=== PATIENT | female | born 1975 | race Caucasian/White ===

== ENCOUNTER 2020-02-13 18:44 | Observation (INO) | payer MEDICAID ==
[2020-02-13] MEDS ORDERED: Ondansetron 4 MG/2 ML SDV IVPUSH ONE (19:05)
[2020-02-13] MEDS ORDERED: HYDROmorphone 1 MG/ML Syringe IVPUSH STA (19:05)
[2020-02-13] MEDS ORDERED: Sodium Chloride 0.9% 1,000 ML IV SCH (19:15)
[2020-02-13] MEDS ORDERED: HYDROmorphone 1 MG/ML Syringe IVPUSH ONE (19:39)
--- NOTE | 2020-02-13 19:45 | EDM.PDOC ---
ED HPI GENERAL MEDICAL PROBLEM - General Chief Complaint: Abdominal Pain Stated Complaint: ABDOMINAL PAIN Time Seen by Provider: 02/13/20 18:49 Source of Information: Reports: Patient, Other (Friend) History Limitations: Reports: Physical Impairment (Patient crying, hysterical) - History of Present Illness INITIAL COMMENTS - FREE TEXT/NARRATIVE: Ms. Cunningham is a 44-year-old woman with a past medical history significant for obesity, depression, and bipolar affective disorder, who now presents to the ED stating that she has had upper abdominal pain - she passes her hand across her entire upper abdomen - for the past 10 days, but that it got much worse this afternoon, along with nausea, vomiting, and loose bowel movements. The pain occasionally radiates through to her back. The patient is unable to describe the character of the pain. She states that her symptoms improve if she takes a hot shower. She denies any association with food, although she does acknowledge that she ate a greasy breakfast. Further, she states that she was told that she has 2 gallstones, seen on an x-ray in the past. Here in the ED, the patient is found to be hemodynamically stable, afebrile, saturating 95% on room air. She is crying, and hysterical to the point that she is difficult to understand, and obtaining a history from the patient is difficult. Other than her gastrointestinal symptoms, the patient denies recent fever, chills, sore throat, ear pain, nasal or sinus congestion, cough, dyspnea, chest pain, palpitations, constipation, diarrhea, urinary symptoms, recent weight gain or weight loss, recent bloody bowel movements or black bowel movements, recent joint aches, headaches, or rashes. The patient's PCP is Marixa Balderas, however, Dr. Silvestre Friedman, from [place], is ayaka damon while Ms. Balderas is on leave. Her Orthopedic Surgeon is Dr. Jarod Lopez, in [place]. Upper Abdominal Pain Score (Numeric/FACES): 10 - Related Data Allergies Allergy/AdvReac Type Severity Reaction Status Date / Time No Known Allergies Allergy Verified 02/13/20 18:58 Home Meds: Home Meds ARIPiprazole [Abilify] 5 mg PO DAILY 02/13/20 [History] Topiramate [Topamax] 25 mg PO BEDTIME 06/24/20 [History] carvediloL [Carvedilol] 12.5 mg PO BID 02/13/20 [History] lisinopriL [Lisinopril] 10 mg PO DAILY 02/13/20 [History] Past Medical History Cardiovascular History: Reports: Heart Failure (LVEF 34%?), Hypertension Genitourinary History: Reports: Urinary Incontinence Musculoskeletal History: Reports: Other (See Below) (Paget disease of the bone) Neurological History: Reports: Other (See Below) (Left footdrop) Psychiatric History: Reports: Bipolar, Depression Endocrine/Metabolic History: Reports: Obesity/BMI 30+ - Past Surgical History HEENT Surgical History: Reports: Adenoidectomy, Oral Surgery (wisdom teeth extracted), Tonsillectomy (x 2) Cardiovascular Surgical History: Reports: Other (See Below) (Coronary angiogram x 1, 2017 -> clean) GI Surgical History: Reports: Hernia, Abdominal (umbilical) Female Surgical History: Reports: Tubal Ligation Musculoskeletal Surgical History: Reports: Hip Replacement (bilateral), ORIF (left femur) Social & Family History - Family History Family Medical History: Noncontributory - Tobacco Use Smoking Status *Q: Current Every Day Smoker Years of Tobacco use: 29 Packs/Tins Daily: 0.4 - Alcohol Use Alcohol Use History: Yes Alcohol Use Frequency: Socially - Recreational Drug Use Recreational Drug Use: Yes Drug Use in Last 12 Months: Yes Recreational Drug Type: Reports: Marijuana/Hashish (smokes nightly) - Living Situation & Occupation Living situation: Reports: , Other (with friends) 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 ED EXAM, GI/ABD - Physical Exam Exam: See Below Exam Limited By: Physical Impairment (crying, hysterical) General Appearance: Alert, WD/WN, Mild Distress Eyes: Bilateral: Normal Appearance, EOMI Ears: Normal External Exam, Hearing Grossly Normal Nose: Normal Inspection Throat/Mouth: Normal Inspection, Normal Lips, Normal Voice, No Airway Compromise Head: Atraumatic, Normocephalic Neck: Normal Inspection, Full Range of Motion Respiratory/Chest: No Respiratory Distress, Lungs Clear, Normal Breath Sounds, No Accessory Muscle Use Cardiovascular: Normal Peripheral Pulses, Regular Rate, Rhythm, No Gallop, No JVD, No Murmur, No Rub GI/Abdominal Exam: Normal Bowel Sounds, Soft, No Organomegaly, No Distention, No Abnormal Bruit, No Mass, Tender (generalized, but likely more tender in the upper abdomen than the lower abdomen) (Female) Exam: Deferred Rectal (Female) Exam: Deferred Back Exam: Normal Inspection, Full Range of Motion, NT Extremities: Normal Inspection, Normal Range of Motion, No Pedal Edema, Normal Capillary Refill Neurological: Alert, Oriented, Normal Cognition, No Motor/Sensory Deficits Psychiatric: Anxious Skin Exam: Warm, Dry, Intact, Normal Color, No Rash Course - Vital Signs Last Recorded V/S: Last Vital Signs Temp 36.5 C 02/13/20 18:49 Pulse 86 02/13/20 18:49 Resp 20 02/13/20 18:49 BP 97/77 02/13/20 18:49 Pulse Ox 95 02/13/20 18:49 - Orders/Labs/Meds Orders: Active Orders 24 hr Category Date Time Status Sodium Chloride 0.9% [Normal Saline] 1,000 ml Med 02/13/20 19:15 Active IV ASDIRECTED Sodium Chloride 0.9% [Saline Flush] Med 02/13/20 20:14 Active 10 ml FLUSH ONETIME PRN Medication Orders Sodium Chloride (Normal Saline) 1,000 mls @ 150 mls/hr IV ASDIRECTED SANDOR Last Admin: 02/13/20 19:15 Dose: 150 mls/hr Documented by: LIZ Sodium Chloride (Saline Flush) 10 ml FLUSH ONETIME PRN PRN Reason: Keep Vein Open Last Admin: 02/13/20 20:31 Dose: 10 ml Documented by: YASIR Labs: Laboratory Tests 02/13/20 02/13/20 02/13/20 Range/Units 19:12 19:12 19:12 WBC 8.92 (3.98-10.04) K/mm3 RBC 4.24 (3.98-5.22) M/mm3 Hgb 12.7 (11.2-15.7) gm/dl Hct 38.6 (34.1-44.9) % MCV 91.0 (79.4-94.8) fl MCH 30.0 (25.6-32.2) pg MCHC 32.9 (32.2-35.5) g/dl RDW Std Deviation 43.8 (36.4-46.3) fL Plt Count 234 (182-369) K/mm3 MPV 11.0 (9.4-12.3) fl Neutrophils % (Manual) 81 H (40-60) % Band Neutrophils % 0 (0-10) % Lymphocytes % (Manual) 15 L (20-40) % Atypical Lymphs % 0 % Monocytes % (Manual) 3 (2-10) % Eosinophils % (Manual) 0 L (0.7-5.8) % Basophils % (Manual) 1 (0.1-1.2) Platelet Estimate Adequate Plt Morphology Comment Normal RBC Morph Comment Normal Sodium 143 (136-145) mEq/L Potassium 3.6 (3.5-5.1) mEq/L Chloride 106 (98-107) mEq/L Carbon Dioxide 26 (21-32) mEq/L Anion Gap 14.6 (5-15) BUN 15 (7-18) mg/dL Creatinine 0.9 (0.55-1.02) mg/dL Est Cr Clr Drug Dosing 71.03 mL/min Estimated GFR (MDRD) > 60 (>60) mL/min BUN/Creatinine Ratio 16.7 (14-18) Glucose 138 H (74-106) mg/dL Calcium 9.6 (8.5-10.1) mg/dL Total Bilirubin 0.4 (0.2-1.0) mg/dL AST 14 L (15-37) U/L ALT 25 (14-59) U/L Alkaline Phosphatase 71 (46-116) U/L Total Protein 7.2 (6.4-8.2) g/dl Albumin 3.8 (3.4-5.0) g/dl Globulin 3.4 gm/dL Albumin/Globulin Ratio 1.1 (1-2) Lipase 95 (73-393) U/L HCG, Quant 2.0 mIU/mL Meds: Medications Generic Name Dose Route Start Last Admin Trade Name Freq PRN Reason Stop Dose Admin Sodium Chloride 1,000 mls @ 150 mls/hr 02/13/20 19:15 02/13/20 19:15 Normal Saline IV 150 mls/hr ASDIRECTED SANDOR Administration Sodium Chloride 10 ml 02/13/20 20:14 02/13/20 20:31 Saline Flush FLUSH 10 ml ONETIME PRN Administration Keep Vein Open Discontinued Medications Generic Name Dose Route Start Last Admin Trade Name Gerard PRN Reason Stop Dose Admin Hydromorphone HCl 1 mg 02/13/20 19:05 02/13/20 19:15 Dilaudid IVPUSH 02/13/20 19:06 1 mg ONETIME STA Administration Hydromorphone HCl 1 mg 02/13/20 19:39 02/13/20 19:53 Dilaudid IVPUSH 02/13/20 19:40 1 mg ONETIME ONE Administration Iopamidol 100 ml 02/13/20 20:14 02/13/20 20:31 Isovue-300 (61%) IVPUSH 02/13/20 20:15 100 ml ONETIME ONE Administration Ondansetron HCl 4 mg 02/13/20 19:05 02/13/20 19:15 Zofran IVPUSH 02/13/20 19:06 4 mg ONETIME ONE Administration - Re-Assessments/Exams Free Text/Narrative Re-Assessment/Exam: 02/13/20 19:40 As above, the patient has been experiencing upper abdominal pain, likely epigastric, but possibly right upper quadrant, for the past 10 days, worse today, along with nausea, vomiting, and loose bowel movements. On examination, she complains of tenderness to her entire abdomen, but she is likely more tender in the upper abdomen than elsewhere. I have ordered a work-up that includes blood work and a CT scan of her abdomen and pelvis with oral and IV contrast. In the meantime, the patient will be treated with IV Dilaudid, IV Zofran, and IV fluid. The fact that the patient specifically mentioned that her symptoms improve when she takes a hot shower, and that she smokes marijuana nightly, strongly implies cannabis hyperemesis syndrome. 02/13/20 20:18 When I initially evaluated the patient, I was unable to obtain a history, as the patient was crying and too hysterical to be able to understand what she was saying. I went and placed orders, including Dilaudid, then returned to her room, by which time she was much more calm. She was drinking oral contrast at the time, but started complaining that the oral contrast was making her abdominal pain much worse, and she again became hysterical. I informed the patient that she did not need to continue to drink the oral contrast. I am now notified by CL Quintanilal, that the patient is insisting on some water to drink. She is receiving IV fluid. I do not want the patient to drink water, in case her work-up determines that surgery is necessary. 02/13/20 20:59 CT of the abdomen and pelvis with oral and IV contrast as read by Dr. Vasquez as: 1. Findings as noted above. (this includes visualization of a large gallstone, measuring approximately 1.7 cm, within the gallbladder) 2. Nothing acute is appreciated on CT study of the abdomen and pelvis. 02/13/20 21:11 Test results discussed with the patient, with Socorro SMALLWOOD, present. Her friend is not currently present. The patient was found soundly sleeping. As above, today's work-up is entirely unremarkable, and does not explain the cause of her pain. I explained to the patient that further work-up of her gallbladder including a HIDA scan and an ultrasound of her right upper quadrant, is necessary, but the fact that she has improvement of her symptoms with a hot shower in the face of smoking marijuana on a daily basis, strongly implies that her symptoms are due to cannabis hyperemesis syndrome, and as such, I recommended that she stop smoking marijuana altogether. The patient asked that if she does that, what should she do about her chronic pain, to which I pointed out that her current symptoms are not worth whatever pain relief she might get from marijuana, to which she agreed. I asked her if she has been to a pain affiliate manager in the past, and she stated that she had previously been on opioids, and did not want to go down that road again. She then stated that she is in too much pain to go home, despite being found sleeping. Case then discussed with Dr. Rendon, here in the ED. She will evaluate the patient and determine whether or not she will accept the patient for placement into observation. 02/13/20 21:[address] Rendon that she is having a difficult time with the patient. The patient has been yelling at her, insisting that she be admitted and given Dilaudid. Dr. Rendon does not feel it is appropriate that the patient receive Dilaudid given her negative work-up, however, she stepped out of the patient's room to allow the patient to calm down, and intends to return to the room to discuss the situation some more. She will let me know what her ultimate decision is. 02/13/20 22:[address] Rendon that she will place the patient into observation. Departure - Departure Time of Disposition: 22:19 Disposition: Refer to Observation Condition: Good Clinical Impression: Cannabis hyperemesis syndrome concurrent with and due to cannabis abuse, Upper abdominal pain of unknown etiology - Discharge Information *PRESCRIPTION DRUG MONITORING PROGRAM REVIEWED*: Not Applicable *COPY OF PRESCRIPTION DRUG MONITORING REPORT IN PATIENT GREG: Not Applicable Referrals: PCP,Not In Area [Primary Care Provider] - Jarod Lopez MD [Ordering Only Provider] - Forms: ED Department Discharge Sepsis Event Note (ED) - Evaluation Sepsis Screening Result: No Definite Risk - Focused Exam Vital Signs: Vital Signs Temp Pulse Resp BP Pulse Ox 02/13/20 18:49 36.5 C 86 20 97/77 95 - My Orders Last 24 Hours: My Active Orders 02/13/20 19:15 Sodium Chloride 0.9% [Normal Saline] 1,000 ml IV ASDIRECTED 02/13/20 20:14 Sodium Chloride 0.9% [Saline Flush] 10 ml FLUSH ONETIME PRN - Assessment/Plan Last 24 Hours: My Active Orders 02/13/20 19:15 Sodium Chloride 0.9% [Normal Saline] 1,000 ml IV ASDIRECTED 02/13/20 20:14 Sodium Chloride 0.9% [Saline Flush] 10 ml FLUSH ONETIME PRN
[2020-02-13] MEDS ORDERED: Sodium Chloride 0.9% 10 ML Syringe FLUSH PRN (20:14)
[2020-02-13] MEDS ORDERED: Iopamidol 612 MG/ML 100 ML Bottle IVPUSH ONE (20:14)
--- NOTE | 2020-02-13 20:56 | CT ---
CT abdomen and pelvis Technique: Multiple axial sections were obtained from above the liver inferiorly through the pelvis. Intravenous contrast was utilized. No oral contrast has been given. Delayed images were also obtained. Findings: Visualized lung bases show nothing acute. Small hiatal hernia is noted. Small low-density area is noted within the inferior right lobe measuring 5 mm which is too small to characterize by Hounsfield unit measurements but most likely represents a small cyst. There is a large gallstone seen within the gallbladder measuring approximately 1.7 cm. Spleen appears within normal limits. Adrenal glands show no nodule. Pancreas shows no discrete abnormality. Aorta shows no aneurysm. Kidneys show symmetric contrast enhancement without hydronephrosis or mass. No retroperitoneal adenopathy or mesenteric abnormalities are noted. Appendix is seen which is normal. No pelvic mass or adenopathy is seen. Portion of the lower pelvis is obscured from artifact from bilateral hip prosthesis. Delayed images shows contrast excretion from both kidneys into nondilated ureters. Contrast is noted within the bladder. Bone window settings were reviewed which shows slight degenerative change within the L5-S1 disks with vacuum phenomena. Mild degenerative apophyseal change is also noted at L4-L5 and L5-S1. Impression: 1. Findings as noted above. 2. Nothing acute is appreciated on CT study of the abdomen and pelvis. Diagnostic code #2 Study was dictated in MDT
[2020-02-13] MEDS ORDERED: Morphine 2 MG/ML Syringe IVPUSH PRN (22:14)
[2020-02-13] MEDS ORDERED: Ondansetron 4 MG/2 ML SDV IV PRN (22:14)
[2020-02-13] MEDS ORDERED: Lactated Ringers 1,000 ML IV SCH (22:15)
[2020-02-13] MEDS ORDERED: LORazepam 2 MG/ML SDV IVPUSH ONE (22:21)
--- NOTE | 2020-02-13 22:21 | PCM.HP.2 ---
H&P History of Present Illness - General Date of Service: 02/13/20 Admit Problem/Dx: Admission Diagnosis/Problem Admission Diagnosis/Problem Abdominal pain - History of Present Illness Initial Comments - Free Text/Narative: Most of the information was obtained from signout provided by ED physician due to issues that arise during my interview. As per ED physician "Patient had come in with severe abdominal pain that has been intermittent for the past 10 days with acutely worsening on the day of consultation associated with nausea vomiting and some loose bowel movements. Upon his evaluation patient reported tenderness throughout her abdomen on physical exam but appeared to be more tender in the upper xiomara abdomen. After initial examination he ordered IV Dilaudid, Zofran and fluids. He did specifically note that the patient had mentioned that the symptoms improve when she takes a hot shower, she also endorsed smoking marijuana every night. He discussed with patient that the work-up performed was completely unremarkable and did not explain the cause of her pain. He did mention that she might need further work-up for a biliary obstruction but the fact that she had improvement with her symptoms with a hot shower and using marijuana on a daily basis was strongly suggestive that her symptoms were due to cannabis hyperemesis syndrome and he recommended she stop smoking marijuana. The patient also asked him what to do regarding her chronic pain after which she stated she had previously been on opioids for chronic pain control and did not want to go down that road again. He did mention to me that what the patient was stating regarding her pain level was not very consistent with her behavior as she was sleeping prior to stating this. Upper Abdominal Pain Score (Numeric/FACES): 10 - Related Data Allergies/Adverse Reactions: Allergies Allergy/AdvReac Type Severity Reaction Status Date / Time No Known Allergies Allergy Verified 02/13/20 18:58 Home Medications: Home Meds ARIPiprazole [Abilify] 2 mg PO DAILY 02/13/20 [History] Topiramate [Topamax] 25 mg PO BEDTIME 02/13/20 [History] carvediloL [Carvedilol] 12.5 mg PO BID 02/13/20 [History] lisinopriL [Lisinopril] 10 mg PO DAILY 02/13/20 [History] Escitalopram Oxalate [Lexapro] 20 mg PO DAILY 02/14/20 [History] Torsemide 40 mg PO DAILY 02/14/20 [History] metOLazone [Zaroxolyn] 2.5 mg PO DAILY 02/14/20 [History] Acetaminophen/HYDROcodone [[place] 325-5 MG] 1 tab PO Q6H PRN #8 tablet 02/15/20 [Rx] Ondansetron [Zofran] 4 mg PO Q6H #16 tab 02/15/20 [Rx] Sennosides/Docusate Sodium [Senexon-S 50-8.6 mg Tablet] 1 tab PO DAILY #20 tab 02/15/20 [Rx] Past Medical History - Past Health History Medical/Surgical History: Denies Medical/Surgical History Cardiovascular History: Reports: Heart Failure (LVEF 34%?), Hypertension Other Cardiovascular History: She is supposed to be on medication for hypertension, but does not take it. She has previously been on propranolol. Other Respiratory History: She is supposed to be taking albuterol inhaler, but does not take this. Gastrointestinal History: Reports: Gastritis, Other (See Below) Genitourinary History: Reports: Urinary Incontinence Musculoskeletal History: Reports: Other (See Below) (Paget disease of the bone) Other Musculoskeletal History: foot drop Neurological History: Reports: Other (See Below) (Left footdrop) Psychiatric History: Reports: Bipolar, Depression Endocrine/Metabolic History: Reports: Obesity/BMI 30+ - Past Surgical History HEENT Surgical History: Reports: Adenoidectomy, Oral Surgery (wisdom teeth extracted), Tonsillectomy (x 2) Cardiovascular Surgical History: Reports: Other (See Below) (Coronary angiogram x , 2017 -> clean) GI Surgical History: Reports: Hernia, Abdominal (umbilical) Female Surgical History: Reports: Tubal Ligation Musculoskeletal Surgical History: Reports: Hip Replacement (bilateral), ORIF (left femur) Social & Family History - Family History Family Medical History: Noncontributory - Tobacco Use Smoking Status *Q: Current Every Day Smoker Years of Tobacco use: 29 Packs/Tins Daily: 0.4 - Recreational Drug Use Recreational Drug Use: Yes Drug Use in Last 12 Months: Yes Recreational Drug Type: Reports: Marijuana/Hashish (smokes nightly) Other Recreational Drug Type: reports smoking daily medical marijuana Recreational Drug Use Frequency: Daily - Living Situation & Occupation Living situation: Reports: , Other (with friends) Occupation: Employed ([employer] in [employer] H&P Review of Systems - Review of Systems: Review Of Systems: Unable To Obtain Reason Not Obtained: Patient refused to answer questions Exam - Exam Exam: Not Obtained Reason Not Obtained: Patient refused - Patient Data Result Diagrams: 02/14/20 05:30 02/15/20 04:55 Sepsis Event Note - Evaluation Sepsis Screening Result: No Definite Risk - Problem List (1) 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 SNOMED Code(s): 06897308 ICD Code: I50.9 - HEART FAILURE, UNSPECIFIED; Q24.9 - CONGENITAL MALFORMATION OF HEART, UNSPECIFIED Status: Acute (2) Abdominal pain SNOMED Code(s): 78422877 ICD Code: R10.9 - UNSPECIFIED ABDOMINAL PAIN Status: Acute Priority: High (3) Anxiety SNOMED Code(s): 94481254 ICD Code: F41.9 - ANXIETY DISORDER, UNSPECIFIED Status: Acute Priority: High (4) Cannabis hyperemesis syndrome concurrent with and due to cannabis abuse SNOMED Code(s): 97443228855884348 ICD Code: F12.188 - CANNABIS ABUSE WITH OTHER CANNABIS-INDUCED DISORDER Status: Acute Priority: High (5) Current smoker SNOMED Code(s): 73030788 ICD Code: F17.200 - NICOTINE DEPENDENCE, UNSPECIFIED, UNCOMPLICATED Status: Chronic Priority: Medium (6) Depression SNOMED Code(s): 67153052 ICD Code: F32.9 - MAJOR DEPRESSIVE DISORDER, SINGLE EPISODE, UNSPECIFIED Status: Chronic Priority: Medium Qualifiers: Depression Type: unspecified Qualified Code(s): F32.9 - Major depressive disorder, single episode, unspecified (7) Marijuana abuse SNOMED Code(s): 84553184 ICD Code: F12.10 - CANNABIS ABUSE, UNCOMPLICATED Status: Chronic Priority: High (8) Obesity SNOMED Code(s): 945219339, 279615381 ICD Code: E66.9 - OBESITY, UNSPECIFIED Status: Acute Priority: High Qualifiers: Obesity type: unspecified obesity type Obesity classification: adult class 2 (BMI 35 - 39.9) Serious obesity comorbidity presence: unspecified whether serious comorbidity present Body mass index: BMI 38.0-38.9 Qualified Code(s): E66.9 - Obesity, unspecified; Z68.38 - Body mass index (BMI) 38.0-38.9, adult Problem List Initiated/Reviewed/Updated: Yes Assessment/Plan Comment:: After getting signout from ED physician I went into patient's room. Patient refused to answer my questions, did not allow me to perform a physical exam and was not in agreement with plan of care. My differential diagnosis is very limited due to the fact that I have limited information. According to information provided by ED provider the patient has acute abdominal pain of unknown etiology at this time. No abnormal blood work or imaging results were found in the emergency department Patient was admitted to medical floor with: 1. IV fluid repletion 2. Pain regimen A. Mild painToradol B. Moderate paintramadol C. Severe painDemerol 3. N.p.o. 4. Complete abdominal ultrasound in a.m. 5. PRN Sanam 6. Possible surgical consult depending on ultrasound results in a.m.
[2020-02-13] MEDS: Ketorolac 30 MG/ML SDV IV PRN (22:45)
[2020-02-14] MEDS ORDERED: traMADol 50 MG Tab PO PRN (00:27)
[2020-02-14] MEDS: Meperidine 50 MG/ML Vial IVPUSH PRN ×4 (03:58→23:57)
[2020-02-14] MEDS: Ketorolac 30 MG/ML SDV IV PRN (05:11)
[2020-02-14] MEDS: Nicotine 21 MG/24 Hr Patch TRDERM SCH (08:42)
[2020-02-14] MEDS ORDERED: Enoxaparin 40 MG/0.4 ML Syringe SUBCUT SCH (10:00)
--- NOTE | 2020-02-14 10:33 | US ---
Abdominal ultrasound: Multiple real-time images of the abdomen were obtained. Comparison: Previous CT abdomen and pelvis exam of 02/13/20. Findings: Pancreas shows no discrete abnormality. Liver contains no focal parenchymal abnormality. Several gallstones are seen within the gallbladder. No gallbladder wall thickening or biliary duct dilatation is seen. Kidneys show no hydronephrosis or mass. Right kidney length is 12.2 cm and left kidney length is 12.9 cm. Spleen size is normal. Aorta shows no aneurysm. Inferior vena cava is patent. Main portal vein shows normal hepatopedal flow. Impression: 1. Gallstones without gallbladder wall thickening or biliary duct dilatation. 2. Other portions of the abdominal ultrasound study are unremarkable. Diagnostic code #2 This report was dictated in MDT
[2020-02-14] MEDS ORDERED: LORazepam 2 MG/ML SDV IVPUSH ONE (11:00)
[2020-02-14] MEDS: Heparin Sodium 5,000 Units/ML Vial SUBCUT SCH ×2 (11:02→19:51)
--- NOTE | 2020-02-14 11:21 | PCM.PN ---
- General Info Date of Service: 02/14/20 Admission Dx/Problem (Free Text): Admission Diagnosis/Problem Admission Diagnosis/Problem Abdominal pain Functional Status: Reports: Ambulating, Urinating. Denies: Pain Controlled (Reports severe pain despite pain medications. ), Tolerating Diet (NPO - upset about this), New Symptoms - Review of Systems General: Reports: Weakness, Fatigue. Denies: Fever, Chills HEENT: Reports: No Symptoms. Denies: Headaches Pulmonary: Reports: No Symptoms. Denies: Shortness of Breath, Cough, Sputum, Wheezing Cardiovascular: Reports: No Symptoms. Denies: Chest Pain, Palpitations Gastrointestinal: Reports: Abdominal Pain (RUQ), Diarrhea, Nausea. Denies: Constipation, Hematochezia, Melena, Vomiting Genitourinary: Reports: No Symptoms. Denies: Pain Musculoskeletal: Reports: No Symptoms Skin: Reports: No Symptoms. Denies: Cyanosis Neurological: Reports: No Symptoms. Denies: Confusion, Pre-Existing Deficit, Difficulty Walking, Gait Disturbance Psychiatric: Reports: Depression, Mood Lability, Anxiety, Agitation Systems Review Comment:: Patient is upset about NPO status and lack of pain medications. - Patient Data Vitals - Most Recent: Last Vital Signs Temp 97.3 F 02/14/20 03:57 Pulse 108 H 02/14/20 03:57 Resp 16 02/14/20 03:57 BP 108/61 02/14/20 03:57 Pulse Ox 95 02/14/20 05:24 Weight - Most Recent: 228 lb 12.8 oz I&O - Last 24 Hours: Intake & Output 02/13/20 02/14/20 02/14/20 22:59 06:59 14:59 Intake Total 250 Output Total 0 Balance 250 Lab Results Last 24 Hours: Laboratory Results - last 24 hr 02/13/20 02/13/20 02/13/20 Range/Units 19:12 19:12 19:12 WBC 8.92 (3.98-10.04) K/mm3 RBC 4.24 (3.98-5.22) M/mm3 Hgb 12.7 (11.2-15.7) gm/dl Hct 38.6 (34.1-44.9) % MCV 91.0 (79.4-94.8) fl MCH 30.0 (25.6-32.2) pg MCHC 32.9 (32.2-35.5) g/dl RDW Std Deviation 43.8 (36.4-46.3) fL Plt Count 234 (182-369) K/mm3 MPV 11.0 (9.4-12.3) fl Neut % (Auto) (34.0-71.1) % Lymph % (Auto) (19.3-51.7) % [place] % (Auto) (4.7-12.5) % Eos % (Auto) (0.7-5.8) Baso % (Auto) (0.1-1.2) % Neut # (Auto) (1.56-6.13) K/mm3 Lymph # (Auto) (1.18-3.74) K/mm3 [place] # (Auto) (0.24-0.36) K/mm3 Eos # (Auto) (0.04-0.36) K/mm3 Baso # (Auto) (0.01-0.08) K/mm3 Neutrophils % (Manual) 81 H (40-60) % Band Neutrophils % 0 (0-10) % Lymphocytes % (Manual) 15 L (20-40) % Atypical Lymphs % 0 % Monocytes % (Manual) 3 (2-10) % Eosinophils % (Manual) 0 L (0.7-5.8) % Basophils % (Manual) 1 (0.1-1.2) Manual Slide Review Platelet Estimate Adequate Plt Morphology Comment Normal RBC Morph Comment Normal Sodium 143 (136-145) mEq/L Potassium 3.6 (3.5-5.1) mEq/L Chloride 106 (98-107) mEq/L Carbon Dioxide 26 (21-32) mEq/L Anion Gap 14.6 (5-15) BUN 15 (7-18) mg/dL Creatinine 0.9 (0.55-1.02) mg/dL Est Cr Clr Drug Dosing 71.03 mL/min Estimated GFR (MDRD) > 60 (>60) mL/min BUN/Creatinine Ratio 16.7 (14-18) Glucose 138 H (74-106) mg/dL Calcium 9.6 (8.5-10.1) mg/dL Phosphorus (2.6-4.7) mg/dL Magnesium (1.8-2.4) mg/dl Total Bilirubin 0.4 (0.2-1.0) mg/dL AST 14 L (15-37) U/L ALT 25 (14-59) U/L Alkaline Phosphatase 71 (46-116) U/L Total Protein 7.2 (6.4-8.2) g/dl Albumin 3.8 (3.4-5.0) g/dl Globulin 3.4 gm/dL Albumin/Globulin Ratio 1.1 (1-2) Lipase 95 (73-393) U/L HCG, Quant 2.0 mIU/mL 02/14/20 02/14/20 Range/Units 05:30 05:30 WBC 7.12 (3.98-10.04) K/mm3 RBC 4.12 (3.98-5.22) M/mm3 Hgb 12.2 (11.2-15.7) gm/dl Hct 38.4 (34.1-44.9) % MCV 93.2 (79.4-94.8) fl MCH 29.6 (25.6-32.2) pg MCHC 31.8 L (32.2-35.5) g/dl RDW Std Deviation 45.3 (36.4-46.3) fL Plt Count 203 (182-369) K/mm3 MPV 11.1 (9.4-12.3) fl Neut % (Auto) 69.3 (34.0-71.1) % Lymph % (Auto) 21.2 (19.3-51.7) % [place] % (Auto) 8.3 (4.7-12.5) % Eos % (Auto) 0.8 (0.7-5.8) Baso % (Auto) 0.3 (0.1-1.2) % Neut # (Auto) 4.93 (1.56-6.13) K/mm3 Lymph # (Auto) 1.51 (1.18-3.74) K/mm3 [place] # (Auto) 0.59 H (0.24-0.36) K/mm3 Eos # (Auto) 0.06 (0.04-0.36) K/mm3 Baso # (Auto) 0.02 (0.01-0.08) K/mm3 Neutrophils % (Manual) (40-60) % Band Neutrophils % (0-10) % Lymphocytes % (Manual) (20-40) % Atypical Lymphs % % Monocytes % (Manual) (2-10) % Eosinophils % (Manual) (0.7-5.8) % Basophils % (Manual) (0.1-1.2) Manual Slide Review Not Reportable Platelet Estimate Plt Morphology Comment RBC Morph Comment Sodium 144 (136-145) mEq/L Potassium 3.4 L (3.5-5.1) mEq/L Chloride 108 H (98-107) mEq/L Carbon Dioxide 27 (21-32) mEq/L Anion Gap 12.4 (5-15) BUN 14 (7-18) mg/dL Creatinine 0.9 (0.55-1.02) mg/dL Est Cr Clr Drug Dosing 71.03 mL/min Estimated GFR (MDRD) > 60 (>60) mL/min BUN/Creatinine Ratio 15.6 (14-18) Glucose 105 (74-106) mg/dL Calcium 8.7 (8.5-10.1) mg/dL Phosphorus 3.4 (2.6-4.7) mg/dL Magnesium 1.8 (1.8-2.4) mg/dl Total Bilirubin (0.2-1.0) mg/dL AST (15-37) U/L ALT (14-59) U/L Alkaline Phosphatase (46-116) U/L Total Protein (6.4-8.2) g/dl Albumin (3.4-5.0) g/dl Globulin gm/dL Albumin/Globulin Ratio (1-2) Lipase (73-393) U/L HCG, Quant mIU/mL Med Orders - Current: Current Medications Heparin Sodium (Porcine) (Heparin Sodium) 5,000 units SUBCUT Q8H [facility] Last Admin: 02/14/20 11:02 Dose: 5,000 units Documented by: Lactated Ringer's (Ringers, Lactated) 1,000 mls @ 75 mls/hr IV ASDIRECTED [facility] Last Admin: 02/13/20 22:45 Dose: 75 mls/hr Documented by: Ketorolac Tromethamine (Toradol) 30 mg IVPUSH Q6H PRN PRN Reason: Pain (moderate 4-6) Meperidine HCl (Meperidine) 50 mg IVPUSH Q4H PRN PRN Reason: Pain (severe 7-10) Last Admin: 02/14/20 08:28 Dose: 50 mg Documented by: Miscellaneous Information (Remove Patch) 1 ea TRDERM DAILY [facility] Nicotine (Habitrol) 21 mg TRDERM DAILY [facility] Last Admin: 02/14/20 08:42 Dose: 21 mg Documented by: Ondansetron HCl (Zofran) 4 mg IV Q6H PRN PRN Reason: Nausea/Vomiting Sodium Chloride (Saline Flush) 10 ml FLUSH ONETIME PRN PRN Reason: Keep Vein Open Last Admin: 02/13/20 20:31 Dose: 10 ml Documented by: Tramadol HCl (Ultram) 50 mg PO Q8H PRN PRN Reason: Pain (moderate 4-6) Discontinued Medications Hydromorphone HCl (Dilaudid) 1 mg IVPUSH ONETIME STA Stop: 02/13/20 19:06 Last Admin: 02/13/20 19:15 Dose: 1 mg Documented by: Hydromorphone HCl (Dilaudid) 1 mg IVPUSH ONETIME ONE Stop: 02/13/20 19:40 Last Admin: 02/13/20 19:53 Dose: 1 mg Documented by: Sodium Chloride (Normal Saline) 1,000 mls @ 150 mls/hr IV ASDIRECTED [facility] Last Admin: 02/13/20 19:15 Dose: 150 mls/hr Documented by: Iopamidol (Isovue-300 (61%)) 100 ml IVPUSH ONETIME ONE Stop: 02/13/20 20:15 Last Admin: 02/13/20 20:31 Dose: 100 ml Documented by: Ketorolac Tromethamine (Toradol) 60 mg IV Q6H PRN PRN Reason: Pain (moderate 4-6) Last Admin: 02/14/20 05:11 Dose: 60 mg Documented by: Lorazepam (Ativan) 0.5 mg IVPUSH ONETIME ONE Stop: 02/13/20 22:22 Last Admin: 02/13/20 22:45 Dose: 0.5 mg Documented by: Lorazepam (Ativan) 0.5 mg IVPUSH ONETIME ONE Stop: 02/14/20 11:01 Last Admin: 02/14/20 11:03 Dose: 0.5 mg Documented by: Morphine Sulfate (Morphine) 2 mg IVPUSH Q4H PRN PRN Reason: Pain (severe 7-10) Ondansetron HCl (Zofran) 4 mg IVPUSH ONETIME ONE Stop: 02/13/20 19:06 Last Admin: 02/13/20 19:15 Dose: 4 mg Documented by: - Exam Quality Assessment: DVT Prophylaxis General: Alert, Oriented, Cooperative (Mostly ), Severe Distress HEENT: Pupils Equal, Pupils Reactive, Mucous Membr. Moist/[place] Neck: Supple, Trachea Midline Lungs: Clear to Auscultation, Normal Respiratory Effort Cardiovascular: Regular Rate, Regular Rhythm GI/Abdominal Exam: Normal Bowel Sounds, Soft, No Distention, Tender (RUQ) (Female) Exam: Deferred Back Exam: Normal Inspection, Full Range of Motion Extremities: Normal Inspection, Normal Range of Motion, Non-Tender, No Pedal Edema, Normal Capillary Refill Peripheral Pulses: 4+: Radial (L), Radial (R), Dorsalis Pedis (L), Dorsalis Pedis (R) Skin: Warm, Dry, Intact Wound/Incisions: Dressing Dry and Intact Neurological: No New Focal Deficit Psy/Mental Status: Alert, Labile Mood, Anxious, Depressed, Agitated Sepsis Event Note - Evaluation Sepsis Screening Result: No Definite Risk - Focused Exam Vital Signs: Vital Signs Temp Pulse Resp BP Pulse Ox Pulse Ox 02/14/20 05:24 95 02/14/20 03:57 97.3 F 108 H 16 108/61 96 02/13/20 23:45 88 L 02/13/20 23:32 102 H 93 L Date Exam was Performed: 02/18/20 Time Exam was Performed: 08:34 - Problem List & Annotations (1) Abdominal pain SNOMED Code(s): 60302923 Code(s): R10.9 - UNSPECIFIED ABDOMINAL PAIN Status: Acute Priority: High Qualifiers: Abdominal location: right upper quadrant Qualified Code(s): R10.11 - Right upper quadrant pain (2) Anxiety SNOMED Code(s): 10929714 Code(s): F41.9 - ANXIETY DISORDER, UNSPECIFIED Status: Chronic Priority: High (3) Cannabis hyperemesis syndrome concurrent with and due to cannabis abuse SNOMED Code(s): 22524818497841152 Code(s): F12.188 - CANNABIS ABUSE WITH OTHER CANNABIS-INDUCED DISORDER Status: Acute Priority: High (4) 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 SNOMED Code(s): 27583297 Code(s): I50.9 - HEART FAILURE, UNSPECIFIED; Q24.9 - CONGENITAL MALFORMATION OF HEART, UNSPECIFIED Status: Chronic Priority: Medium (5) Obesity SNOMED Code(s): 292878274, 504883675 Code(s): E66.9 - OBESITY, UNSPECIFIED Status: Chronic Priority: Medium Qualifiers: Obesity type: unspecified obesity type Obesity classification: adult class 2 (BMI 35 - 39.9) Serious obesity comorbidity presence: unspecified whether serious comorbidity present Body mass index: BMI 38.0-38.9 Qualified Code(s): E66.9 - Obesity, unspecified; Z68.38 - Body mass index (BMI) 38.0-38.9, adult (6) Bipolar disorder SNOMED Code(s): 93955994 Code(s): F31.9 - BIPOLAR DISORDER, UNSPECIFIED Status: Chronic Priority: High Qualifiers: Active/Remission status: currently active Current bipolar episode type: mixed Current episode severity: unspecified Qualified Code(s): F31.60 - Bipolar disorder, current episode mixed, unspecified (7) Current smoker SNOMED Code(s): 17213575 Code(s): F17.200 - NICOTINE DEPENDENCE, UNSPECIFIED, UNCOMPLICATED Status: Chronic Priority: Medium (8) Depression SNOMED Code(s): 00533602 Code(s): F32.9 - MAJOR DEPRESSIVE DISORDER, SINGLE EPISODE, UNSPECIFIED Status: Chronic Priority: Medium Qualifiers: Depression Type: unspecified Qualified Code(s): F32.9 - Major depressive disorder, single episode, unspecified (9) Foot drop, left SNOMED Code(s): 2237679, 73166710 Code(s): M21.372 - FOOT DROP, LEFT FOOT Status: Chronic Priority: Low (10) Marijuana abuse SNOMED Code(s): 88803674 Code(s): F12.10 - CANNABIS ABUSE, UNCOMPLICATED Status: Chronic Priority: High (11) Paget disease of bone SNOMED Code(s): 8987571 Code(s): M88.9 - OSTEITIS DEFORMANS OF UNSPECIFIED BONE Status: Chronic Priority: Low (12) Urinary incontinence SNOMED Code(s): 445226940 Code(s): R32 - UNSPECIFIED URINARY INCONTINENCE Status: Chronic Priority: Low Qualifiers: Urinary Incontinence type: unspecified incontinence Qualified Code(s): R32 - Unspecified urinary incontinence (13) Hypokalemia SNOMED Code(s): 48690108 Code(s): E87.6 - HYPOKALEMIA Status: Acute Priority: High - Problem List Review Problem List Initiated/Reviewed/Updated: Yes - Plan Plan:: Abdominal pain Cannabis hyperemesis syndrome concurrent with and due to cannabis abuse Marijuana abuse Obesity Chronic pain Presented to ED on 02/13/20 with significant abdominal pain present for 10 days but worse on day of ED visit Associated with nausea, vomiting, loose stools Reports daily marijuana use States pain improves when she takes a hot shower Difficult to exam due to patient being hysterical and crying in ED CT of abdomen and pelvis shows gallstones - with largest being 1.7 cm No transaminitis, Bilirubin WNL, Lipase WNL, No leukocytosis Abdominal US shows gallstones without gallbladder wall thickening or biliary duct dilation Reports on marijuana for chronic pain PLAN - NPO - Pain medications as ordered - Antiemetics as ordered - Heat therapy - Ambulate - Marijuana cessation counseling - General surgery consultation - Dr. Ridley Anxiety Bipolar disorder Depression On home Abilify, Lexapro, Topamax Very anxious in ED and on floor; Crying and refusing to answer questions at times PLAN - Ativan x1 dose - Continue home medications - Recommend outpatient psychiatry follow-up Hypokalemia Potassium 3.4 PLAN - Supplement Current smoker Reports almost a half pack a day smoker PLAN - Nicotine patch - Cessation counseling - Offer nicotine patches on discharge. 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 Disposition: Pending surgical consult. Likely discharge in 24-48 hours.
[2020-02-14] MEDS ORDERED: Acetaminophen/HYDROcodone 325-5 MG Tab PO PRN (11:36)
[2020-02-14] MEDS: ARIPiprazole 5 MG Tab PO SCH (12:08)
[2020-02-14] MEDS: Acetaminophen/HYDROcodone 325-5 MG Tab PO PRN ×2 (12:08→19:59)
[2020-02-14] MEDS: Carvedilol 12.5 MG Tab PO SCH ×2 (12:09→20:39)
[2020-02-14] MEDS ORDERED: Potassium Chloride 10% 20 MEQ/15 ML Soln 15 ML UD Cup PO ONE (15:30)
[2020-02-14] MEDS ORDERED: Ketorolac 30 MG/ML SDV IVPUSH PRN (16:00)
--- NOTE | 2020-02-14 16:37 | PCM.CONS ---
H&P History of Present Illness - General Date of Service: 02/14/20 Admit Problem/Dx: Admission Diagnosis/Problem Admission Diagnosis/Problem Abdominal pain Source of Information: Patient - History of Present Illness Initial Comments - Free Text/Narative: The patient is a 44-year-old lady who presented to the emergency department with upper abdominal pain. She reports this is a very severe episode. She has had similar things happen in the past, but nothing that is ever lasted as long or felt severe. This is been bad in the last week she describes a cramping type sensation but also a fullness in the right upper quadrant. She will push on the area and also has used a rolling pin at home to roll on the RUQ to alleviate mayra pain. She has also pain in the left upper quadrant and epigastric area. This does feel similar to the gastritis that she has had in the past. She has had some nausea and vomiting. The emesis is "bile." She reports no hematemesis or coffee-ground emesis. She did have some heartburn/ reflux symptoms after vomiting. She reports eating a fatty meal at the time the pain became severe, but she was feeling unwell before that started. Her last bowel movement was yesterday. It was small and she used a soapsuds enema to stimulate the bowel movement. She reports the stool is small and pebble-like. She denies any rectal pain or pain with passing a bowel movement. She denies any hematochezia. After admission from the emergency department, the patient was admitted to the floor. The hospitalist in charge of her care has been unable to obtain history from the patient due to the patient's continued agitated state. The patient insisted on recording the entire interview. The patient reports that the hospitalist has lied to her or about her in multiple aspects. She is currently refusing to have the hospitalist (Dr. Rendon) to be a part of her care in any way. She does not want Dr. Rendon to be updated on her status. She also reports she is going to make a case against Dr. Rendon. Upper Abdominal Pain Score (Numeric/FACES): 10 - Related Data Allergies/Adverse Reactions: Allergies Allergy/AdvReac Type Severity Reaction Status Date / Time No Known Allergies Allergy Verified 02/13/20 18:58 Home Medications: Home Meds ARIPiprazole [Abilify] 2 mg PO DAILY 02/13/20 [History] Topiramate [Topamax] 25 mg PO BEDTIME 02/13/20 [History] carvediloL [Carvedilol] 12.5 mg PO BID 02/13/20 [History] lisinopriL [Lisinopril] 10 mg PO DAILY 02/13/20 [History] Acetaminophen/HYDROcodone [[place] 325-5 MG] 1 tab PO Q4H 02/14/20 [History] Escitalopram Oxalate [Lexapro] 20 mg PO DAILY 02/14/20 [History] Sennosides/Docusate Sodium [Senexon-S 50-8.6 mg Tablet] 1 tab PO DAILY PRN 02/14/20 [History] Torsemide 40 mg PO DAILY 02/14/20 [History] metOLazone [Zaroxolyn] 2.5 mg PO DAILY 02/14/20 [History] Past Medical History - Past Health History Medical/Surgical History: Denies Medical/Surgical History Cardiovascular History: Reports: Heart Failure, Hypertension Other Cardiovascular History: She is supposed to be on medication for hypertension, but does not take it. She has previously been on propranolol. Other Respiratory History: She is supposed to be taking albuterol inhaler, but does not take this. Gastrointestinal History: Reports: Gastritis, Other (See Below) Genitourinary History: Reports: Chronic Renal Insuffiency, Urinary Incontinence Other OB/BYN History: Previously entered, patient uncooperative. Unknown on this assessment. Musculoskeletal History: Reports: Other (See Below) Other Musculoskeletal History: foot drop Neurological History: Reports: Other (See Below) Psychiatric History: Reports: Anxiety, Bipolar, Depression Endocrine/Metabolic History: Reports: Obesity/BMI 30+ - Past Surgical History HEENT Surgical History: Reports: Adenoidectomy, Oral Surgery, Tonsillectomy Other HEENT Surgeries/Procedures: Previously entered, patient uncooperative. Unknown on this assessment. Cardiovascular Surgical History: Reports: Other (See Below) Other Respiratory Surgeries/Procedures: Previously entered, patient uncooperative. Unknown on this assessment. GI Surgical History: Reports: Hernia, Abdominal Other GI Surgeries/Procedures: Previously entered, patient uncooperative. Unknown on this assessment. Female Surgical History: Reports: Tubal Ligation Other Endocrine Surgeries/Procedures: Previously entered, patient uncooperative. Unknown on this assessment. Other Neurological Surgeries/Procedures: Previously entered, patient uncooperati ve. Unknown on this assessment. Musculoskeletal Surgical History: Reports: Hip Replacement, ORIF, Other (See Below) Other Musculoskeletal Surgeries/Procedures:: Patient states she has degenerative disc disease. Social & Family History - Family History GI: Reports: Cholelithiasis (mother had "emergency gallbladder surgery") - Tobacco Use Smoking Status *Q: Current Status Unknown Years of Tobacco use: 29 Packs/Tins Daily: 0.4 - Recreational Drug Use Recreational Drug Use: Yes Drug Use in Last 12 Months: Yes Recreational Drug Type: Reports: Marijuana/Hashish (smokes nightly) Other Recreational Drug Type: reports smoking daily medical marijuana Recreational Drug Use Frequency: Daily - Living Situation & Occupation Living situation: Reports: , Other (with friends) Occupation: Employed ([employer] in [employer]) H&P Review of Systems - Review of Systems: Review Of Systems: See Below General: Reports: No Symptoms HEENT: Reports: No Symptoms Pulmonary: Reports: No Symptoms Cardiovascular: Reports: No Symptoms Gastrointestinal: Reports: Abdominal Pain, Nausea, Vomiting Genitourinary: Reports: No Symptoms Skin: Reports: No Symptoms Neurological: Reports: Numbness (in RLE, resolved with position change) Hematologic/Lymphatic: Reports: No Symptoms Exam - Exam Exam: See Below - Vital Signs Vital Signs: Last Vital Signs Temp 36.6 C 02/14/20 11:17 Pulse 99 02/14/20 12:09 Resp 20 02/14/20 11:17 BP 130/85 02/14/20 12:09 Pulse Ox 99 02/14/20 11:17 Weight: 103.782 kg - Exam Quality Assessment: No: Supplemental Oxygen General: Alert, Oriented HEENT: EOMI, Other (injected conjunctiva) Neck: Supple Lungs: Clear to Auscultation, Normal Respiratory Effort Cardiovascular: Regular Rate, Regular Rhythm GI/Abdominal Exam: Soft, Tender (in bilateral upper quadrants, most in the RUQ and epigastrium) Extremities: Normal Inspection Peripheral Pulses: 2+: Dorsalis Pedis (L), Dorsalis Pedis (R) Skin: Warm, Dry, Intact Neurological: Cranial Nerves Intact Neuro Extensive - Mental Status: Alert Psychiatric: Labile Mood, Anxious, Other (easily agitated and tearful) - Patient Data Lab Results Last 24 hrs: Laboratory Results - last 24 hr 02/13/20 02/13/20 02/13/20 Range/Units 19:12 19:12 19:12 WBC 8.92 (3.98-10.04) K/mm3 RBC 4.24 (3.98-5.22) M/mm3 Hgb 12.7 (11.2-15.7) gm/dl Hct 38.6 (34.1-44.9) % MCV 91.0 (79.4-94.8) fl MCH 30.0 (25.6-32.2) pg MCHC 32.9 (32.2-35.5) g/dl RDW Std Deviation 43.8 (36.4-46.3) fL Plt Count 234 (182-369) K/mm3 MPV 11.0 (9.4-12.3) fl Neut % (Auto) (34.0-71.1) % Lymph % (Auto) (19.3-51.7) % [place] % (Auto) (4.7-12.5) % Eos % (Auto) (0.7-5.8) Baso % (Auto) (0.1-1.2) % Neut # (Auto) (1.56-6.13) K/mm3 Lymph # (Auto) (1.18-3.74) K/mm3 [place] # (Auto) (0.24-0.36) K/mm3 Eos # (Auto) (0.04-0.36) K/mm3 Baso # (Auto) (0.01-0.08) K/mm3 Neutrophils % (Manual) 81 H (40-60) % Band Neutrophils % 0 (0-10) % Lymphocytes % (Manual) 15 L (20-40) % Atypical Lymphs % 0 % Monocytes % (Manual) 3 (2-10) % Eosinophils % (Manual) 0 L (0.7-5.8) % Basophils % (Manual) 1 (0.1-1.2) Manual Slide Review Platelet Estimate Adequate Plt Morphology Comment Normal RBC Morph Comment Normal Sodium 143 (136-145) mEq/L Potassium 3.6 (3.5-5.1) mEq/L Chloride 106 (98-107) mEq/L Carbon Dioxide 26 (21-32) mEq/L Anion Gap 14.6 (5-15) BUN 15 (7-18) mg/dL Creatinine 0.9 (0.55-1.02) mg/dL Est Cr Clr Drug Dosing 71.03 mL/min Estimated GFR (MDRD) > 60 (>60) mL/min BUN/Creatinine Ratio 16.7 (14-18) Glucose 138 H (74-106) mg/dL Calcium 9.6 (8.5-10.1) mg/dL Phosphorus (2.6-4.7) mg/dL Magnesium (1.8-2.4) mg/dl Total Bilirubin 0.4 (0.2-1.0) mg/dL AST 14 L (15-37) U/L ALT 25 (14-59) U/L Alkaline Phosphatase 71 (46-116) U/L Total Protein 7.2 (6.4-8.2) g/dl Albumin 3.8 (3.4-5.0) g/dl Globulin 3.4 gm/dL Albumin/Globulin Ratio 1.1 (1-2) Lipase 95 (73-393) U/L HCG, Quant 2.0 mIU/mL 02/14/20 02/14/20 Range/Units 05:30 05:30 WBC 7.12 (3.98-10.04) K/mm3 RBC 4.12 (3.98-5.22) M/mm3 Hgb 12.2 (11.2-15.7) gm/dl Hct 38.4 (34.1-44.9) % MCV 93.2 (79.4-94.8) fl MCH 29.6 (25.6-32.2) pg MCHC 31.8 L (32.2-35.5) g/dl RDW Std Deviation 45.3 (36.4-46.3) fL Plt Count 203 (182-369) K/mm3 MPV 11.1 (9.4-12.3) fl Neut % (Auto) 69.3 (34.0-71.1) % Lymph % (Auto) 21.2 (19.3-51.7) % [place] % (Auto) 8.3 (4.7-12.5) % Eos % (Auto) 0.8 (0.7-5.8) Baso % (Auto) 0.3 (0.1-1.2) % Neut # (Auto) 4.93 (1.56-6.13) K/mm3 Lymph # (Auto) 1.51 (1.18-3.74) K/mm3 [place] # (Auto) 0.59 H (0.24-0.36) K/mm3 Eos # (Auto) 0.06 (0.04-0.36) K/mm3 Baso # (Auto) 0.02 (0.01-0.08) K/mm3 Neutrophils % (Manual) (40-60) % Band Neutrophils % (0-10) % Lymphocytes % (Manual) (20-40) % Atypical Lymphs % % Monocytes % (Manual) (2-10) % Eosinophils % (Manual) (0.7-5.8) % Basophils % (Manual) (0.1-1.2) Manual Slide Review Not Reportable Platelet Estimate Plt Morphology Comment RBC Morph Comment Sodium 144 (136-145) mEq/L Potassium 3.4 L (3.5-5.1) mEq/L Chloride 108 H (98-107) mEq/L Carbon Dioxide 27 (21-32) mEq/L Anion Gap 12.4 (5-15) BUN 14 (7-18) mg/dL Creatinine 0.9 (0.55-1.02) mg/dL Est Cr Clr Drug Dosing 71.03 mL/min Estimated GFR (MDRD) > 60 (>60) mL/min BUN/Creatinine Ratio 15.6 (14-18) Glucose 105 (74-106) mg/dL Calcium 8.7 (8.5-10.1) mg/dL Phosphorus 3.4 (2.6-4.7) mg/dL Magnesium 1.8 (1.8-2.4) mg/dl Total Bilirubin (0.2-1.0) mg/dL AST (15-37) U/L ALT (14-59) U/L Alkaline Phosphatase (46-116) U/L Total Protein (6.4-8.2) g/dl Albumin (3.4-5.0) g/dl Globulin gm/dL Albumin/Globulin Ratio (1-2) Lipase (73-393) U/L HCG, Quant mIU/mL Result Diagrams: 02/14/20 05:30 02/14/20 05:30 Sepsis Event Note - Evaluation Sepsis Screening Result: No Definite Risk - Focused Exam Vital Signs: Vital Signs Temp Pulse Resp BP Pulse Ox Pulse Ox 02/14/20 12:09 99 130/85 02/14/20 11:17 36.6 C 99 20 130/85 99 02/14/20 08:40 36.7 C 104 H 20 124/65 96 02/14/20 05:24 95 Date Exam was Performed: 02/14/20 Time Exam was Performed: 17:36 *Q Meaningful Use (ADM) - VTE Risk Assess *Q Each Risk Factor Represents 1 Point: Age 41 - 59 years, Obesity ( BMI > 25 kg/m2) Total Score 1 Point Risk Factors: 2 Consult PN Assessment/Plan Procedures: Procedures CHORIONIC GONADOTROPIN ASSAY (01/17/15) COMPLETE CBC W/AUTO DIFF WBC (01/17/15) COMPREHEN METABOLIC PANEL (01/17/15) DRAIN/INJ JOINT/BURSA W/O US (06/04/15) EMERGENCY DEPT VISIT (02/03/16) EMERGENCY DEPT VISIT (01/17/15) EVALUATE PT USE OF INHALER (01/17/15) IMMUNIZATION ADMIN (01/17/15) INJECTION FOR HIP X-RAY (06/04/15) NEEDLE LOCALIZATION BY XRAY (06/04/15) ROUTINE VENIPUNCTURE (01/17/15) RPR S/N/AX/GEN/TRNK >30.0 CM (01/17/15) TDAP VACCINE 7 YRS/> IM (01/17/15) THER/PROPH/DIAG IV INF INIT (01/17/15) TX/PRO/DX INJ NEW DRUG ADDON (01/17/15) X-RAY EXAM HIP UNI 2-3 VIEWS (02/03/16) X-RAY EXAM OF FOREARM (01/17/15) X-RAY EXAM OF HAND (01/17/15) X-RAY EXAM OF KNEE 3 (02/03/16) (1) Constipation SNOMED Code(s): 60159420 Code(s): K59.00 - CONSTIPATION, UNSPECIFIED Current Visit: Yes (2) Upper abdominal pain of unknown etiology SNOMED Code(s): 810246165, 562859648 Code(s): R10.10 - UPPER ABDOMINAL PAIN, UNSPECIFIED Current Visit: Yes Problem List Initiated/Reviewed/Updated: Yes Plan: 44 y/o lady with upper abdominal pain and fullness. CT scan reviewed. Stool retention in RUQ consistent with constipation in the location of the patient's pain. Possible component of gastritis - ordered magnesium citrate for stimulation of bowel movement - will try GI cocktail to address any gastritis - pt refusing to allow the hospitalist to participate in her care. Nursing staff is aware and will notify patient that this can only be done if the patient chooses to transfer to another facility. No acute surgical intervention is warranted. Pt should follow up with Surgery after acute resolution of pain to discuss cholecystectomy for large gallstone (>1.5cm). This does not need to be done urgently. It does not appear that biliary colic is the reason for her pain. Mignon Tristan MD General surgery
[2020-02-14] MEDS ORDERED: Magnesium Citrate Solution 296 ML Bottle PO ONE (17:19)
[2020-02-14] MEDS ORDERED: Alum Hydrox/Mag Hydrox/Simeth 30 ML, Lidocaine 2% 15 ML PO ONE ×2 (17:53)
[2020-02-14] MEDS ORDERED: LORazepam 0.5 MG Tab PO PRN (19:16)
[2020-02-14] MEDS ORDERED: Promethazine 25 MG in Sodium Chloride 0.9% 50 ML IV PRN (20:02)
[2020-02-14] MEDS ORDERED: Topiramate 25 MG Tab PO SCH (21:00)
[2020-02-14] MEDS ORDERED: Lisinopril 10 MG Tab PO SCH (21:00)
[2020-02-15] MEDS: Heparin Sodium 5,000 Units/ML Vial SUBCUT SCH (02:27)
[2020-02-15] MEDS: Acetaminophen/HYDROcodone 325-5 MG Tab PO PRN (06:37)
[2020-02-15] MEDS: ARIPiprazole 5 MG Tab PO SCH (08:24)
[2020-02-15] MEDS: Carvedilol 12.5 MG Tab PO SCH (08:24)
[2020-02-15] MEDS: Nicotine 21 MG/24 Hr Patch TRDERM SCH (08:25)
--- NOTE | 2020-02-15 08:25 | PCM.DCSUM1 ---
Discharge Summary - Hospital Course HPI Initial Comments: Most of the information was obtained from signout provided by ED physician due to issues that arise during my interview. As per ED physician "Patient had come in with severe abdominal pain that has been intermittent for the past 10 days with acutely worsening on the day of consultation associated with nausea vomiting and some loose bowel movements. Upon his evaluation patient reported tenderness throughout her abdomen on physical exam but appeared to be more tender in the upper xiomara abdomen. After initial examination he ordered IV Dilaudid, Zofran and fluids. He did specifically note that the patient had mentioned that the symptoms improve when she takes a hot shower, she also endorsed smoking marijuana every night. He discussed with patient that the work-up performed was completely unremarkable and did not explain the cause of her pain. He did mention that she might need further work-up for a biliary obstruction but the fact that she had improvement with her symptoms with a hot shower and using marijuana on a daily basis was strongly suggestive that her symptoms were due to cannabis hyperemesis syndrome and he recommended she stop smoking marijuana. The patient also asked him what to do regarding her chronic pain after which she stated she had previously been on opioids for chronic pain control and did not want to go down that road again. He did mention to me that what the patient was stating regarding her pain level was not very consistent with her behavior as she was sleeping prior to stating this. Diagnosis: Stroke: No - Discharge Data Discharge Date: 02/15/20 (Admit date: 02/13/20) Discharge Disposition: Home, Self-Care 01 Condition: Good - Referral to Home Health Primary Care Physician: PCP Not In Area - Discharge Diagnosis/Problem(s) (1) Abdominal pain SNOMED Code(s): 46668103 ICD Code: R10.9 - UNSPECIFIED ABDOMINAL PAIN Status: Acute Priority: High Qualifiers: Abdominal location: right upper quadrant Qualified Code(s): R10.11 - Right upper quadrant pain (2) Anxiety SNOMED Code(s): 74982565 ICD Code: F41.9 - ANXIETY DISORDER, UNSPECIFIED Status: Chronic Priority: High (3) Bipolar disorder SNOMED Code(s): 58427312 ICD Code: F31.9 - BIPOLAR DISORDER, UNSPECIFIED Status: Chronic Priority: High Qualifiers: Active/Remission status: currently active Current bipolar episode type: mixed Current episode severity: unspecified Qualified Code(s): F31.60 - Bipolar disorder, current episode mixed, unspecified (4) Heart failure SNOMED Code(s): 49045076 ICD Code: I50.9 - HEART FAILURE, UNSPECIFIED Status: Chronic Priority: Low Qualifiers: Heart failure type: systolic Heart failure chronicity: chronic Qualified Code(s): I50.22 - Chronic systolic (congestive) heart failure (5) Cannabis hyperemesis syndrome concurrent with and due to cannabis abuse SNOMED Code(s): 49073387162624153 ICD Code: F12.188 - CANNABIS ABUSE WITH OTHER CANNABIS-INDUCED DISORDER Status: Acute Priority: High (6) Constipation SNOMED Code(s): 03825689 ICD Code: K59.00 - CONSTIPATION, UNSPECIFIED Status: Acute Priority: High Qualifiers: Constipation type: unspecified constipation type Qualified Code(s): K59.00 - Constipation, unspecified (7) Marijuana abuse SNOMED Code(s): 73189854 ICD Code: F12.10 - CANNABIS ABUSE, UNCOMPLICATED Status: Chronic Priority: High (8) Current smoker SNOMED Code(s): 50789817 ICD Code: F17.200 - NICOTINE DEPENDENCE, UNSPECIFIED, UNCOMPLICATED Status: Chronic Priority: Medium (9) Gastritis SNOMED Code(s): 7675445 ICD Code: K29.70 - GASTRITIS, UNSPECIFIED, WITHOUT BLEEDING Status: Chronic Priority: Low Qualifiers: Gastritis type: unspecified gastritis Chronicity: unspecified Gastritis bleeding: without bleeding Qualified Code(s): K29.70 - Gastritis, unspecified, without bleeding (10) Urinary incontinence SNOMED Code(s): 187050856 ICD Code: R32 - UNSPECIFIED URINARY INCONTINENCE Status: Chronic Priority: Low Qualifiers: Urinary Incontinence type: unspecified incontinence Qualified Code(s): R32 - Unspecified urinary incontinence (11) Paget disease of bone SNOMED Code(s): 9233577 ICD Code: M88.9 - OSTEITIS DEFORMANS OF UNSPECIFIED BONE Status: Chronic Priority: Low (12) Depression SNOMED Code(s): 85335372 ICD Code: F32.9 - MAJOR DEPRESSIVE DISORDER, SINGLE EPISODE, UNSPECIFIED Status: Chronic Priority: Medium Qualifiers: Depression Type: unspecified Qualified Code(s): F32.9 - Major depressive disorder, single episode, unspecified (13) Foot drop, left SNOMED Code(s): 8256571, 36948937 ICD Code: M21.372 - FOOT DROP, LEFT FOOT Status: Chronic Priority: Low (14) Obesity SNOMED Code(s): 057699716, 688864643 ICD Code: E66.9 - OBESITY, UNSPECIFIED Status: Chronic Priority: Medium Qualifiers: Obesity type: unspecified obesity type Obesity classification: adult class 2 (BMI 35 - 39.9) Serious obesity comorbidity presence: unspecified whether serious comorbidity present Body mass index: BMI 38.0-38.9 Qualified Code (s): E66.9 - Obesity, unspecified; Z68.38 - Body mass index (BMI) 38.0-38.9, adult (15) Hypokalemia SNOMED Code(s): 41918529 ICD Code: E87.6 - HYPOKALEMIA Status: Acute Priority: High (16) Cholelithiasis SNOMED Code(s): 921571346 ICD Code: K80.20 - CALCULUS OF GALLBLADDER W/O CHOLECYSTITIS W/O OBSTRUCTION Status: Chronic Priority: Medium Qualifiers: Cholelithiasis location: gallbladder Cholecystitis presence: without cholecystitis Biliary obstruction: without biliary obstruction Qualified Code(s): K80.20 - Calculus of gallbladder without cholecystitis without obstruction (17) 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 Recommend fairly soon follow-up with general surgeon/GI regarding gallstones as patient will likely require cholecystectomy. Recommend follow-up with psychiatry at next available appointment regarding anxiety. Hospital Course: Marcie Cunningham was admitted to the hospital floor observation status for abdominal pain of unknown origin. As noted in the ED note she was quite hysterical and crying frequently. This continued on the floor. Attempt was made by her hospitalist physician to examine her in the ED and the patient refused. Patient continued to refuse to be seen by hospitalist physician and remained very distraught. Ultimately she was willing to be seen by the physician video library assistant on the floor. CT scan in the ED showed cholelithiasis but no signs of cholecystitis. Labs on admission and throughout stay were grossly unremarkable with no signs of transaminitis, leukocytosis, and a normal bilirubin. Lipase was normal and hCG was negative. She was initially made n.p.o. status, and was quite upset about this. It was explained to the patient that this is standard of care for abdominal pain for multiple reasons, one of which is the potential for surgery. Abdominal ultrasound was obtained showing gallstones without gallbladder wall thickening or biliary duct dilation. Patient reports that she has known about these for some time as a been noted on prior x-rays. General surgeon, Dr. Ridley, was consulted due to continued abdominal pain with no source. In reviewing the CT scan she noted a large stool ball in the colon in the right upper quadrant. Patient does admit to her that she has been using a rolling pin at times on her abdomen trying to push this through and resolve pain. It is noted that this may be the cause of some of her pain from a musculoskeletal source. She does have a history of constipation and per her prior medication notes has been on Senna plus in the past. She continued to rep ort significant pain and pain medications were adjusted. She also reported nausea. She was given Zofran and ultimately Phenergan for this while inpatient. She continued to have episodes of severe anxiety and liable mood. She would often get angry. Potassium was low and was supplemented. Patient did note that she smokes marijuana daily. She states that she has been doing this for chronic pain control and does have a medical marijuana card. We discussed the possibility of her seeing a chronic pain specialist and she reports that she has done this and that the specialist was thrilled that she had started obtaining control with marijuana. It was discussed that there is likely a correlation between her symptoms and her frequent marijuana use, as she may be suffering from cannabinoid hyperemesis syndrome. Patient did admit in both the ED and on the floor that her symptoms improved with hot showers. She reports a history of congenital heart defect leading to heart failure and she is on several diuretics including metolazone and torsemide. 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 No signs of any acute exacerbation of CHF. No signs of any current heart or lung problems. She was given magnesium citrate which resulted in a large bowel movement and her pain moving more medially. She is also given a GI cocktail. We discussed how this would likely be an ongoing issue for several days as the stool ball needs to move through. 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 Ultimately the patient's diet was advanced. She reported she felt a bit better prior to being discharged. We discussed her cholelithiasis and how she would likely need her gallbladder taken out in the near future, but not urgently or emergently, as there is no signs of cholecystitis or bile duct dilation. It was relayed to the patient that Dr. Ridley would be willing to consider taking this out locally, however the patient may feel more comfortable having this done in [place], where she can be n ear her airfield manager. She was discharged on 5/325 Manvel - 1 tablet every 6 hours as needed for pain, senna plus - 1 tab daily (which she had been prescribed in the past), and Zofran - 4 mg p.o. every 6 as needed for nausea. She was advised to follow-up with a primary care provider within 7 to 10 days of discharge and a general surgeon discharge for potential cholecystectomy. She was also advised to follow-up with outpatient psychiatry given her severe anxiety and prior bipolar disorder diagnoses. She was discharged home. She was advised to return to the emergency room or follow-up with a primary care provider should symptoms return or worsen. - Patient Instructions Diet: Usual Diet as Tolerated Activity: As Tolerated Driving: Do Not Drive (While on narcotics ) Showering/Bathing: May Shower Notify Provider of: Fever, Increased Pain, Nausea and/or Vomiting Other/Special Instructions: Follow-up with primary care provider within 7-10 days of discharge, sooner if needed. Follow-up with general surgery/GI in the near future regarding large gallstones in your gallbladder. This will need to be removed in the fairly near future. Dr. Ridley saw you while you were here and you may follow-up with her. You may choose to be close to your airfield manager as well. Continue to utilize magnesium citrate as needed for extreme constipation. Recommend outpatient psychiatry consult regarding anxiety. Take all new medications as prescribed. Resume home medications as directed. We discussed your smoking status. You were given contact information for smoking cessation such as [place] quits. You refused nicotine patches. You may also discuss this with your primary care provider if you change your mind. As we discussed, your nausea and vomiting may be caused by your frequent consumption of marijuana. You should consider stopping this as it may continue to cause symptoms. If you continue to have pain problems you should follow-up with your pain specialist as we discussed. Do not drive or operate machenery while on opioid pain medications. As we discussed, you may notice continuing pain and symptoms for several more days as that stool ball moves through you. Should symptoms return or worsen, contact a primary care provider or return to the Emergency Department. - Discharge Plan *PRESCRIPTION DRUG MONITORING PROGRAM REVIEWED*: Yes *COPY OF PRESCRIPTION DRUG MONITORING REPORT IN PATIENT GREG: Yes Prescriptions/Med Rec: Acetaminophen/HYDROcodone [Manvel 325-5 MG] 1 tab PO Q6H PRN #8 tablet PRN Reason: Pain (Severe 7-10) Sennosides/Docusate Sodium [Senexon-S 50-8.6 mg Tablet] 1 tab PO DAILY #20 tab Ondansetron [Zofran] 4 mg PO Q6H #16 tab Home Medications: Home Meds ARIPiprazole [Abilify] 2 mg PO DAILY 02/13/20 [History] Topiramate [Topamax] 25 mg PO BEDTIME 02/13/20 [History] carvediloL [Carvedilol] 12.5 mg PO BID 02/13/20 [History] lisinopriL [Lisinopril] 10 mg PO DAILY 02/13/20 [History] Escitalopram Oxalate [Lexapro] 20 mg PO DAILY 02/14/20 [History] Torsemide 40 mg PO DAILY 02/14/20 [History] metOLazone [Zaroxolyn] 2.5 mg PO DAILY 02/14/20 [History] Acetaminophen/HYDROcodone [Manvel 325-5 MG] 1 tab PO Q6H PRN #8 tablet 02/15/20 [Rx] Ondansetron [Zofran] 4 mg PO Q6H #16 tab 02/15/20 [Rx] Sennosides/Docusate Sodium [Senexon-S 50-8.6 mg Tablet] 1 tab PO DAILY #20 tab 02/15/20 [Rx] Oxygen Therapy Mode: Room Air Patient Handouts: Cannabis Use Disorder, Heart Failure, Self Care, Hypokalemia, Constipation, Adult, [place]-uf-[id number], Panic Attack, Knal-jc-Tkff, Abdominal Pain, Adult, [place]-xf-Ajjt, Steps to Quit Smoking Forms: ED Department Discharge Referrals: Jarod Lopez MD [Ordering Only Provider] - Rosa Farris NP [Nurse Practitioner] - 02/28/20 10:00 am (Please follow up with Rosa Farris on February 27 at 1000.) PCP,Not In Area [Primary Care Provider] - - Discharge Summary/Plan Comment DC Time >30 min.: Yes (45 mins ) - General Info Date of Service: 02/15/20 Admission Dx/Problem (Free Text: Admission Diagnosis/Problem Admission Diagnosis/Problem Abdominal pain Functional Status: Reports: Pain Controlled, Tolerating Diet, Ambulating, Urinating. Denies: New Symptoms - Review of Systems General: Reports: No Symptoms, Fatigue. Denies: Fever, Weakness, Chills HEENT: Reports: No Symptoms. Denies: Headaches, Sore Throat Pulmonary: Reports: No Symptoms. Denies: Shortness of Breath, Cough, Sputum, Wheezing Cardiovascular: Reports: No Symptoms. Denies: Chest Pain, Palpitations, Dyspnea on Exertion Gastrointestinal: Reports: Abdominal Pain, Constipation, Diarrhea, Nausea. Denies: Hematochezia, Melena, Vomiting Genitourinary: Reports: No Symptoms. Denies: Pain Musculoskeletal: Reports: No Symptoms Skin: Reports: No Symptoms. Denies: Cyanosis Neurological: Reports: No Symptoms. Denies: Confusion, Difficulty Walking, Gait Disturbance Psychiatric: Reports: Depression, Mood Lability, Anxiety - Patient Data Vitals - Most Recent: Last Vital Signs Temp 97.3 F 02/15/20 02:31 Pulse 95 02/15/20 02:42 Resp 20 02/15/20 02:31 BP 115/73 02/15/20 02:31 Pulse Ox 96 02/15/20 02:42 Weight - Most Recent: 232 lb 8 oz I&O - Last 24 hours: Intake & Output 02/14/20 02/15/20 02/15/20 22:59 06:59 14:59 Intake Total 1220 1243 240 Output Total 600 300 Balance 620 943 240 Lab Results - Last 24 hrs: Laboratory Results - last 24 hr 02/15/20 Range/Units 04:55 Sodium 139 (136-145) mEq/L Potassium 3.7 (3.5-5.1) mEq/L Chloride 105 (98-107) mEq/L Carbon Dioxide 27 (21-32) mEq/L Anion Gap 10.7 (5-15) BUN 9 (7-18) mg/dL Creatinine 0.8 (0.55-1.02) mg/dL Est Cr Clr Drug Dosing 79.91 mL/min Estimated GFR (MDRD) > 60 (>60) mL/min BUN/Creatinine Ratio 11.3 L (14-18) Glucose 100 (74-106) mg/dL Calcium 8.4 L (8.5-10.1) mg/dL Magnesium 2.0 (1.8-2.4) mg/dl Med Orders - Current: Current Medications Hydrocodone Bitart/Acetaminophen (Manvel 325-5 Mg) 1 tab PO Q6H PRN PRN Reason: Pain (severe 7-10) Last Admin: 02/15/20 06:37 Dose: 1 tab Documented by: Aripiprazole (Abilify) 5 mg PO DAILY [facility] Last Admin: 02/14/20 12:08 Dose: 5 mg Documented by: Carvedilol (Coreg) 12.5 mg PO BID [facility] Last Admin: 02/14/20 20:39 Dose: 12.5 mg Documented by: Citalopram Hydrobromide (Celexa) 40 mg PO DAILY [facility] Heparin Sodium (Porcine) (Heparin Sodium) 5,000 units SUBCUT Q8H [facility] Last Admin: 02/15/20 02:27 Dose: 5,000 units Documented by: Promethazine HCl 25 mg/ Sodium (Chloride) 51 mls @ 100 mls/hr IV Q6H PRN PRN Reason: Nausea Last Admin: 02/14/20 20:30 Dose: 100 mls/hr Documented by: Ketorolac Tromethamine (Toradol) 30 mg IVPUSH Q6H PRN PRN Reason: Pain (moderate 4-6) Lisinopril (Prinivil) 10 mg PO BEDTIME [facility] Last Admin: 02/14/20 20:43 Dose: 10 mg Documented by: Lorazepam (Ativan) 0.5 mg PO Q6H PRN PRN Reason: Anxiety Last Admin: 02/14/20 20:38 Dose: 0.5 mg Documented by: Meperidine HCl (Meperidine) 50 mg IVPUSH Q4H PRN PRN Reason: Pain (severe 7-10) Last Admin: 02/14/20 23:57 Dose: 50 mg Documented by: Metolazone (Zaroxolyn) 2.5 mg PO DAILY [facility] Miscellaneous Information (Remove Patch) 1 ea TRDERM DAILY [facility] Nicotine (Habitrol) 21 mg TRDERM DAILY [facility] Last Admin: 02/14/20 08:42 Dose: 21 mg Documented by: Ondansetron HCl (Zofran) 4 mg IV Q6H PRN PRN Reason: Nausea/Vomiting Last Admin: 02/14/20 16:01 Dose: 4 mg Documented by: Senna (Senna) 8.6 mg PO DAILY [facility] Sodium Chloride (Saline Flush) 10 ml FLUSH ONETIME PRN PRN Reason: Keep Vein Open Last Admin: 02/13/20 20:31 Dose: 10 ml Documented by: Topiramate (Topamax) 25 mg PO BEDTIME [facility] Last Admin: 02/14/20 20:43 Dose: 25 mg Documented by: Torsemide (Demadex) 40 mg PO DAILY [facility] Discontinued Medications Hydrocodone Bitart/Acetaminophen (Manvel 325-5 Mg) 1 tab PO Q6H PRN PRN Reason: moderate pain Al Hydroxide/Mg Hydroxide 30 (ml/ Lidocaine HCl 15 ml) 0 ml PO ONETIME ONE Stop: 02/14/20 17:54 Last Admin: 02/14/20 19:51 Dose: 45 ml Documented by: Hydromorphone HCl (Dilaudid) 1 mg IVPUSH ONETIME STA Stop: 02/13/20 19:06 Last Admin: 02/13/20 19:15 Dose: 1 mg Documented by: Hydromorphone HCl (Dilaudid) 1 mg IVPUSH ONETIME ONE Stop: 02/13/20 19:40 Last Admin: 02/13/20 19:53 Dose: 1 mg Documented by: Sodium Chloride (Normal Saline) 1,000 mls @ 150 mls/hr IV ASDIRECTED [facility] Last Admin: 02/13/20 19:15 Dose: 150 mls/hr Documented by: Lactated Ringer's (Ringers, Lactated) 1,000 mls @ 75 mls/hr IV ASDIRECTED [facility] Last Admin: 02/13/20 22:45 Dose: 75 mls/hr Documented by: Iopamidol (Isovue-300 (61%)) 100 ml IVPUSH ONETIME ONE Stop: 02/13/20 20:15 Last Admin: 02/13/20 20:31 Dose: 100 ml Documented by: Ketorolac Tromethamine (Toradol) 60 mg IV Q6H PRN PRN Reason: Pain (moderate 4-6) Last Admin: 02/14/20 05:11 Dose: 60 mg Documented by: Lorazepam (Ativan) 0.5 mg IVPUSH ONETIME ONE Stop: 02/13/20 22:22 Last Admin: 02/13/20 22:45 Dose: 0.5 mg Documented by: Lorazepam (Ativan) 0.5 mg IVPUSH ONETIME ONE Stop: 02/14/20 11:01 Last Admin: 02/14/20 11:03 Dose: 0.5 mg Documented by: Magnesium Citrate (Citrate Of Magnesia) 296 ml PO ONETIME ONE Stop: 02/14/20 17:20 Last Admin: 02/14/20 17:31 Dose: 296 ml Documented by: Morphine Sulfate (Morphine) 2 mg IVPUSH Q4H PRN PRN Reason: Pain (severe 7-10) Ondansetron HCl (Zofran) 4 mg IVPUSH ONETIME ONE Stop: 02/13/20 19:06 Last Admin: 02/13/20 19:15 Dose: 4 mg Documented by: Potassium Chloride (Potassium Chloride Solution) 40 meq PO ONETIME ONE Stop: 02/14/20 15:31 Last Admin: 02/14/20 15:53 Dose: 40 meq Documented by: Tramadol HCl (Ultram) 50 mg PO Q8H PRN PRN Reason: Pain (moderate 4-6) - Exam Quality Assessment: Reports: DVT Prophylaxis General: Reports: Alert, Oriented, Cooperative, No Acute Distress HEENT: Reports: Pupils Equal, Pupils Reactive, Mucous Membr. Moist/[place] Neck: Reports: Supple, Trachea Midline Lungs: Reports: Clear to Auscultation, Normal Respiratory Effort Cardiovascular: Reports: Regular Rate, Regular Rhythm GI/Abdominal Exam: Normal Bowel Sounds, Soft, No Distention, Tender (RLQ most predomenantly ) (Female) Exam: Deferred Rectal (Female) Exam: Deferred Back Exam: Reports: Normal Inspection, Full Range of Motion Extremities: Normal Inspection, Normal Range of Motion, Non-Tender, No Pedal Edema, Normal Capillary Refill Skin: Reports: Warm, Dry, Intact Neurological: Reports: No New Focal Deficit Psy/Mental Status: Reports: Alert, Labile Mood, Anxious, Depressed
[2020-02-15 08:28] VITALS: BP 107/66; PULSE 98
[2020-02-15] MEDS ORDERED: Sennosides 8.6 MG Tab PO SCH (09:00)
[2020-02-15] MEDS ORDERED: Torsemide 20 MG Tab PO SCH (09:00)
[2020-02-15] MEDS ORDERED: Citalopram 20 MG Tab PO SCH (09:00)
[2020-02-15] MEDS ORDERED: Metolazone 2.5 MG Tab PO SCH (09:00)
[2020-02-15] MEDS: Meperidine 50 MG/ML Vial IVPUSH PRN (09:28)
--- NOTE | 2020-02-15 17:10 | PCM.SN.2 ---
- Free Text/Narrative Note: EVENTS DURING ADMISSION 02/14/20 Visited with patient this morning She again refused to give me any information I did request she be respectful and not screaming at the nursing staff and explained our zero tolerance policy for that A physical exam was offered and patient refused as well Case was then discussed with charge nurse, Brenda and administrative staff and the decision was made to transition care to Charli PATEL. Abdominal ultrasound resulted with cholelithiasis but negative for any signs of cholecystitis, intra or extra hepatic duct dilation. Surgery was consulted who recommended magnesium citrate for constipation Patient was started on a diet and pain medications were transitioned to oral All plans of care were discussed between Charli and myself. 02/15/2020 Pain resolved Tolerated diet No further clinical complaints Discharged home Psychiatric evaluation was recommended as an outpatient
== END 2020-02-15 10:13 | disposition home or self-care (01) ==
LOC: JD.ED 18:44 → JD.MS 22:34
PROVIDERS: ADMIT Internal Medicine; ATTEND Internal Medicine
DX: R10.10 Upper abdominal pain, unspecified (principal); K59.00 Constipation, unspecified; R11.2 Nausea with vomiting, unspecified; F12.188 Cannabis abuse with other cannabis-induced disorder; E66.9 Obesity, unspecified; I11.0 Hypertensive heart disease with heart failure; I50.22 Chronic systolic (congestive) heart failure; F31.9 Bipolar disorder, unspecified; F17.210 Nicotine dependence, cigarettes, uncomplicated; F31.60 Bipolar disorder, current episode mixed, unspecified; K29.70 Gastritis, unspecified, without bleeding; Q24.9 Congenital malformation of heart, unspecified; R32 Unspecified urinary incontinence; M88.9 Osteitis deformans of unspecified bone; M21.372 Foot drop, left foot; E87.6 Hypokalemia; Z68.38 Body mass index [BMI] 38.0-38.9, adult; Z79.899 Other long term (current) drug therapy
CPT/HCPCS: 36415; 74177; 76700; 80048; 80053; 83690; 83735; 84100; 84702; 85007; 85025; 85027; 96361; 96374; 96375; 96376; 99285; A9270; J1170; J1644; J1885; J2060; J2175; J2405; J2550; J7030; J7050; J7120; Q9967; 96372; G0378

== ENCOUNTER 2020-04-20 22:19 | Emergency (ER) | payer MEDICAID ==
--- NOTE | 2020-04-20 22:27 | EDM.PDOC ---
ED HPI GENERAL MEDICAL PROBLEM - General Chief Complaint: General Stated Complaint: R ANKLE SWOLLEN Time Seen by Provider: 04/20/20 22:27 - History of Present Illness INITIAL COMMENTS - FREE TEXT/NARRATIVE: 44-year-old female presents the emergency room with concerns of worsening right ankle pain. Approximately 2 weeks ago the patient was working with some coarse steel wool she did not remember she had her flip-flops on and she thinks she had some get caught in the folds of her skin on her ankle. The patient has chronic lower extremity edema, and wear this has a tendency to fold on her in the posterior medial inferior ankle region she is pulled some steel wall out as recently as earlier today. She believes this was caught in the skin patient has some redness developing in this area and is exquisitely tender. She has not had any breathing difficulties or shortness of breath she does have congestive heart failure Right Foot Pain Score (Numeric/FACES): 8 - Related Data Allergies Allergy/AdvReac Type Severity Reaction Status Date / Time No Known Allergies Allergy Verified 04/20/20 22:36 Home Meds: Home Meds ARIPiprazole [Abilify] 2 mg PO DAILY 02/13/20 [History] Topiramate [Topamax] 25 mg PO BEDTIME 02/13/20 [History] carvediloL [Carvedilol] 12.5 mg PO BID 02/13/20 [History] lisinopriL [Lisinopril] 10 mg PO DAILY 02/13/20 [History] Escitalopram Oxalate [Lexapro] 20 mg PO DAILY 02/14/20 [History] Torsemide 40 mg PO DAILY 02/14/20 [History] metOLazone [Zaroxolyn] 2.5 mg PO DAILY 02/14/20 [History] Sennosides/Docusate Sodium [Senexon-S 50-8.6 mg Tablet] 1 tab PO DAILY #20 tab 02/15/20 [Rx] cephALEXin [Cephalexin] 500 mg PO QID #39 tablet 04/21/20 [Rx] Past Medical History - Past Health History Medical/Surgical History: Denies Medical/Surgical History Cardiovascular History: Reports: Heart Failure (LVEF 34%?), Hypertension Other Cardiovascular History: She is supposed to be on medication for hypertension, but does not take it. She has previously been on propranolol. Other Respiratory History: She is supposed to be taking albuterol inhaler, but does not take this. 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 Unknown on this assessment. Musculoskeletal History: Reports: Other (See Below) (Paget disease of the bone) Other Musculoskeletal History: foot drop Neurological History: Reports: Other (See Below) (Left footdrop) Psychiatric History: Reports: Bipolar, Depression Endocrine/Metabolic History: Reports: Obesity/BMI 30+ - Past Surgical History HEENT Surgical History: Reports: Adenoidectomy, Oral Surgery (wisdom teeth extracted), Tonsillectomy (x 2) Cardiovascular Surgical History: Reports: Other (See Below) (Coronary angiogram x 1, 2017 -> clean) GI Surgical History: Reports: Hernia, Abdominal (umbilical) Female Surgical History: Reports: Tubal Ligation Musculoskeletal Surgical History: Reports: Hip Replacement (bilateral), ORIF (left femur) Social & Family History - Family History Family Medical History: Noncontributory GI: Reports: Cholelithiasis (mother had "emergency gallbladder surgery") - Living Situation & Occupation Living situation: Reports: , Other (with friends) Occupation: Employed ([employer] in [place]) ED ROS GENERAL - Review of Systems Review Of Systems: See Below Constitutional: Reports: No Symptoms Respiratory: Reports: No Symptoms Cardiovascular: Reports: No Symptoms GI/Abdominal: Reports: No Symptoms Musculoskeletal: Reports: Other (Area of right lower leg discomfort along the superficial veins) Skin: Reports: Other (He has some irritation that is tender to palpation in the posterior ankle area behind the medial malleolus) Psychiatric: Reports: No Symptoms ED EXAM, GENERAL - Physical Exam Exam: See Below Exam Limited By: No Limitations General Appearance: Alert, No Apparent Distress, Obese Head: Atraumatic, Normocephalic Neck: Normal Inspection, Supple, Non-Tender, Full Range of Motion Respiratory/Chest: No Respiratory Distress, Lungs Clear, Normal Breath Sounds Cardiovascular: Regular Rate, Rhythm, No Murmur. No: No Edema Extremities: Pedal Edema (1+ pitting edema bilaterally a little worse on the right compared to the left) Skin Exam: Other (She has some tenderness behind the medial malleolus of the right ankle. She has some skin irritation in this area as well and some redness and a small area roughly 3 x 5 cm this area is warm) Lymphatic: No Adenopathy Course - Vital Signs Last Recorded V/S: Last Vital Signs Temp 36.5 C 04/20/20 22:33 Pulse 101 H 04/20/20 22:33 Resp 16 04/20/20 22:33 BP 118/59 L 04/20/20 22:33 Pulse Ox 100 04/20/20 22:33 - Orders/Labs/Meds Orders: Active Orders 24 hr Category Date Time Status Ankle Min 3V Rt [CR] Stat Exams 04/20/20 22:38 Taken Labs: Laboratory Tests 04/20/20 04/20/20 04/20/20 Range/Units 22:50 22:50 22:50 WBC 7.91 (3.98-10.04) K/mm3 RBC 4.40 (3.98-5.22) M/mm3 Hgb 13.2 (11.2-15.7) gm/dl Hct 41.3 (34.1-44.9) % MCV 93.9 (79.4-94.8) fl MCH 30.0 (25.6-32.2) pg MCHC 32.0 L (32.2-35.5) g/dl RDW Std Deviation 45.0 (36.4-46.3) fL Plt Count 243 (182-369) K/mm3 MPV 10.6 (9.4-12.3) fl Neut % (Auto) 75.7 H (34.0-71.1) % Lymph % (Auto) 15.9 L (19.3-51.7) % [place] % (Auto) 6.1 (4.7-12.5) % Eos % (Auto) 1.9 (0.7-5.8) Baso % (Auto) 0.3 (0.1-1.2) % Neut # (Auto) 5.99 (1.56-6.13) K/mm3 Lymph # (Auto) 1.26 (1.18-3.74) K/mm3 [place] # (Auto) 0.48 H (0.24-0.36) K/mm3 Eos # (Auto) 0.15 (0.04-0.36) K/mm3 Baso # (Auto) 0.02 (0.01-0.08) K/mm3 PT 9.8 (9.7-11.7) SECONDS INR < 0.93 APTT 28 (22-31) SECONDS D-Dimer, Quantitative 0.44 (0.19-0.50) mg/L Sodium 137 (136-145) mEq/L Potassium 3.7 (3.5-5.1) mEq/L Chloride 103 (98-107) mEq/L Carbon Dioxide 28 (21-32) mEq/L Anion Gap 9.7 (5-15) BUN 15 (7-18) mg/dL Creatinine 0.9 (0.55-1.02) mg/dL Est Cr Clr Drug Dosing 68.16 mL/min Estimated GFR (MDRD) > 60 (>60) mL/min BUN/Creatinine Ratio 16.7 (14-18) Glucose 102 (74-106) mg/dL Calcium 8.9 (8.5-10.1) mg/dL Total Bilirubin 0.1 L (0.2-1.0) mg/dL AST 13 L (15-37) U/L ALT 28 (14-59) U/L Alkaline Phosphatase 85 (46-116) U/L Total Protein 7.2 (6.4-8.2) g/dl Albumin 3.4 (3.4-5.0) g/dl Globulin 3.8 gm/dL Albumin/Globulin Ratio 0.9 L (1-2) Meds: Medications Discontinued Medications Generic Name Dose Route Start Last Admin Trade Name Freq PRN Reason Stop Dose Admin Hydrocodone Bitart/Acetaminophen 1 tab 04/20/20 23:21 04/20/20 23:39 Destin 325-5 Mg PO 04/20/20 23:22 1 tab ONETIME ONE Administration Cephalexin 500 mg 04/21/20 00:06 Keflex PO 04/21/20 00:07 ONETIME ONE - Re-Assessments/Exams Free Text/Narrative Re-Assessment/Exam: 04/21/20 00:11 Laboratory evaluation including a normal white count and normal d-dimer are unremarkable. X-ray shows no evidence of foreign bodies she has some vague soft tissue swelling in that area but she has some edema anyway. We will start her on cephalexin and give her #6 hydrocodone from the machine out in the waiting room. Departure - Departure Time of Disposition: 00:12 Disposition: Home, Self-Care 01 Clinical Impression: Cellulitis of right foot - Discharge Information Prescriptions: cephALEXin [Cephalexin] 500 mg PO QID #39 tablet Referrals: PCP,Not In Area [Primary Care Provider] - Forms: ED Department Discharge Additional Instructions: Return to the emergency room with any questions problems worsening symptoms. You have been started on cephalexin, this is an antibiotic, also known as Keflex. Take 1 4 times daily until all gone you received your first dose here in the emergency room and a prescription was sent to [facility] [employer]. You were given some Destin from the machine out in the waiting room, this is a pain pill. Take 1 every 6 hours only as needed for pain allow 12 hours after using this medication before driving or returning to work. This medication can cause constipation so it is moffett to use a stool softener with it. Follow-up with your regular physician in a couple of days for recheck. Sepsis Event Note (ED) - Focused Exam Vital Signs: Vital Signs Temp Pulse Resp BP Pulse Ox 04/20/20 22:33 36.5 C 101 H 16 118/59 L 100 - My Orders Last 24 Hours: My Active Orders 04/20/20 22:38 Ankle Min 3V Rt [CR] Stat - Assessment/Plan Last 24 Hours: My Active Orders 04/20/20 22:38 Ankle Min 3V Rt [CR] Stat
[2020-04-20 22:38] VITALS: BP 118/59; PULSE 101
[2020-04-20] MEDS ORDERED: Acetaminophen/HYDROcodone 325-5 MG Tab PO ONE (23:21)
[2020-04-21] MEDS ORDERED: Cephalexin 500 MG Cap PO ONE (00:06)
--- NOTE | 2020-04-21 06:11 | CR ---
Right ankle: 3 views right ankle were obtained. Comparison: No previous study. Plantar spur is noted. Ankle mortise is symmetric. No acute fracture or dislocation is seen. No soft tissue foreign body is appreciated. Impression: 1. Plantar spur. 2. Right ankle study is otherwise unremarkable. Diagnostic code #1 This report was dictated in [facility]T
== END 2020-04-21 00:33 | disposition home or self-care (01) ==
LOC: JD.ED 22:19
DX: L03.115 Cellulitis of right lower limb (principal); E66.9 Obesity, unspecified; I11.0 Hypertensive heart disease with heart failure; I50.9 Heart failure, unspecified; F31.9 Bipolar disorder, unspecified; Z98.51 Tubal ligation status; Z79.899 Other long term (current) drug therapy
CPT/HCPCS: 36415; 73610; 80053; 85025; 85379; 85610; 85730; 99284; A9270; 99283